=== PATIENT | male | born 1960 | race Caucasian/White ===

== ENCOUNTER 2024-01-02 09:37 | Day surgery (SDC) | payer OTHER ==
[~2024-01-02] VITALS: Ht 177.8 cm; Wt 93.4 kg
[~2024-01-02 09:37] MED LIST: CHLO25 PO; LISI5; Lactated Ringer's 1,000 ML IV ONE; Zofran Odt4 MG PO; propofoL 50 ML IV ONE
[2024-01-02] MEDS ORDERED: CLOBETASOL EMOL15 G1 (10:03)
[2024-01-02] MEDS ORDERED: ESZO3 (10:04)
[2024-01-02] MEDS ORDERED: Neurontin 100100 MG (10:04)
[2024-01-02] MEDS ORDERED: DICLOFENAC SODI50 GM (10:04)
[2024-01-02] MEDS ORDERED: QUET100 (10:05)
[2024-01-02] MEDS ORDERED: Lactated Ringer's 1,000 ML IV ONE (10:35)
[2024-01-02 16:31] VITALS: BP 125/93
== END 2024-01-02 11:49 | disposition home or self-care (01) ==
LOC: ORSCSDS 09:37
PROVIDERS: Internal Medicine Gastroenterology
PROC: 0DJ08ZZ Inspection of Upper Intestinal Tract, Via Natural or Artificial Opening Endoscopic (ICD-10-PCS; principal; 2024-01-02 11:00)
DX: K70.30 Alcoholic cirrhosis of liver without ascites (principal); Z87.891 Personal history of nicotine dependence; Z79.899 Other long term (current) drug therapy
CPT/HCPCS: J2704; J7120

== ENCOUNTER 2024-02-13 11:40 | Emergency (ER) | payer OTHER ==
[~2024-02-13] VITALS: Ht 180.3 cm; Wt 88.5 kg
[~2024-02-13 11:40] MED LIST changes: +CLOBETASOL EMOL15 G1; +DICLOFENAC SODI50 GM; +ESZO3; -Lactated Ringer's 1,000 ML IV ONE; +Neurontin 100100 MG; +QUET100; -propofoL 50 ML IV ONE
[2024-02-13 12:20] LABS: BASOPHILS ABSOLUTE AUTO 0.03 K/mm3 (0.00-0.23); BASOPHILS PERCENT AUTO 1 % (0-2); EOSINOPHILS ABSOLUTE AUTO 0.11 K/mm3 (0.00-0.68); EOSINOPHILS PERCENT AUTO 4 % (0-6); Hematocrit 39.5 % (37.0-53.0); Hemoglobin 13.9 g/dL (13.5-17.5); IMMATURE GRAN ABSOLUTE AUTO 0.01 K/mm3 (0.00-0.10); IMMATURE GRAN PERCENT AUTO 0 % (0-1); LYMPHOCYTES ABSOLUTE AUTO 0.37 K/mm3 (0.84-5.20); LYMPHOCYTES PERCENT AUTO 13 % (21-46); MONOCYTES PERCENT AUTO 17 % (4-13); Mean Corpuscular HGB 33.3 pg (26.0-34.0); Mean Corpuscular HGB Conc 35.2 g/dL (31.5-36.5); Mean Corpuscular Volume 95 fL (80-100); Mean Platelet Volume 10.6 fL (9.1-12.4); NEUTROPHILS ABSOLUTE AUTO 1.91 K/mm3 (1.96-9.15); NEUTROPHILS PERCENT AUTO 65 % (41-73); Platelet Count 62 K/mm3 (150-400); RDW Coefficient Variation 12.9 % (11.7-14.2); RDW Standard Deviation 44.4 fL (35.1-46.3); Red Blood Cell Count 4.18 M/mm3 (4.30-5.90); White Blood Cell Count 2.93 K/mm3 (4.00-11.30)
[2024-02-13 12:49] LABS: Albumin, Blood 3.7 g/dL (3.4-5.0); Albumin/Globulin Ratio 0.9 (0.8-1.8); Bilirubin, Total 2.3 mg/dL (0.1-1.0); Bun/Creatinine Ratio 16.6 (12.0-20.0); Calcium, Blood 9.2 mg/dL (8.5-10.1); Creatinine, Blood 0.73 mg/dL (0.60-1.20); Globulin, Blood 4.2 g/dL (2.2-4.0); Potassium, Blood 3.4 mmol/L (3.5-5.5); Total Protein, Blood 7.9 g/dL (6.4-8.2)
[2024-02-13 15:14] VITALS: BP 149/108
[2024-02-13] MEDS ORDERED: ONDA4 PO (15:42)
== END 2024-02-13 15:51 | disposition home or self-care (01) ==
LOC: ER 11:40
PROVIDERS: Physician Assistant
DX: D69.6 Thrombocytopenia, unspecified (principal); I10 Essential (primary) hypertension; Z79.899 Other long term (current) drug therapy; Z88.5 Allergy status to narcotic agent
CPT/HCPCS: 80053; 85025; 99283